=== PATIENT | female | born 2000 | race Caucasian/White ===

== ENCOUNTER 2023-06-02 02:11 | Emergency (ER) | payer OTHER ==
[2023-06-02 03:04] LABS: #Monocytes 0.3 thou/uL (0.11-0.59); #Neutrophils 12.1 thou/uL (1.40-6.50); %Basophils 0.1 % (0.0-1.0); %Eosinophils 0.2 % (0.0-10.0); %Lymphocytes 9.9 % (28.0-48.0); %Monocytes 1.9 % (0.0-4.0); %Neutrophils 87.5 % (31.0-61.0); Hematocrit 39.5 % (36.0-47.0); Hemoglobin 13.4 g/dL (12.0-16.0); Mean Corpuscular HGB CONC 33.9 g/dL (32.0-36.0); Mean Corpuscular Hemoglobin 30.7 pg (25.0-35.0); Mean Corpuscular Volume 90.4 fl (78.0-98.0); Mean Platelet Volume 9.1 fL (7.4-10.4); Platelet Count 376 10x3/uL (130-400); Red Blood Cell (RBC) Count 4.37 mill/uL (4.00-5.20); White Blood Cell (WBC) Count 13.9 10x3/uL (4.8-10.8)
[2023-06-02 03:10] LABS: BHCG - Serum Negative (NEGATIVE); Pregs Control Background? CLEAR/WHITE (CLR/WHITE); Pregs Control Bar Appear? YES (CONTROL BAR)
[2023-06-02 03:26] LABS: ALT (SGPT) 14 U/L (8-55); AST (SGOT) 16 U/L (5-34); Albumin 5.1 g/dL (3.5-5.0); Alkaline Phosphatase 97 U/L (40-100); Anion Gap 16 mmol/L (10-20); BUN (Urea Nitrogen) 11 mg/dL (7.0-18.7); Bilirubin, Total 0.7 mg/dL (0.2-1.2); Calc. Creatinine Clearance 0 mL/min (70-130); Calcium 10.1 mg/dL (7.8-10.44); Carbon Dioxide 21 mmol/L (22-29); Chloride 105 mmol/L (98-107); Estimated GFR 103; Globulin 2.8 g/dL (2.4-3.5); Glucose 107 mg/dL (70-105); Lipase 21 U/L (8-78); Potassium 3.9 mmol/L (3.5-5.1); Protein, Total 7.9 g/dL (6.0-8.3); Sodium 138 mmol/L (136-145)
[2023-06-02] MEDS ORDERED: Morphine 4 MG/ML VIAL ONE ×2 (04:55→06:34)
[2023-06-02] MEDS ORDERED: Prochlorperazine Edisylate 10 MG in Sodium Chloride 0.9% 50 ML IVPB SCH (05:45)
[2023-06-02] MEDS ORDERED: diphenhydrAMINE 50 MG/ML VIAL ONE (06:55)
[2023-06-02] MEDS ORDERED: Haloperidol Lactate 5 MG/ML VIAL ONE (06:55)
[2023-06-02 07:12] LABS: Bacteria/HPF None Seen HPF (None Seen); Bilirubin Negative (Negative); Blood, Urine Negative (Negative); CAUTI Indications for Culture Dysuria,urgency,freq; Clarity Clear (Clear); Glucose, Urine (Dipstick) Normal (Negative); Ketone, Urine 150 mg/dL (Negative); Leukocyte Negative Leu/uL (Negative); Nitrite Negative (Negative); Protein, Urine (Dipstick) 30 mg/dL (Neg-Trace); RBC/HPF 0-3 HPF (0-3); Squamous Epithelial 0-3 HPF (0-3); Urobilinogen Normal mg/dL (Less than 2); WBC/HPF 0-3 HPF (0-3)
[2023-06-02 07:18] LABS: Specific Gravity, Urine Greater than 1.060 (1.002-1.036)
[2023-06-02 07:19] LABS: Urine Culture Reflex No No
[2023-06-02] MEDS ORDERED: Iopamidol-370 76% 500 ML MDV (1 ML CHARGE) ONE (13:53)
== END 2023-06-02 08:22 | disposition home or self-care (01) ==
LOC: ERS 02:11
DX: K52.9 Noninfective gastroenteritis and colitis, unspecified (principal); F17.290 Nicotine dependence, other tobacco product, uncomplicated
CPT/HCPCS: 36415; 74177; 80053; 81001; 83690; 84703; 85025; 96374; 96375; J0780; J1200; J1630; J2270; Q9967